=== PATIENT | female | born 1995 | race African-American/Black ===

== ENCOUNTER 2019-03-10 21:27 | Emergency (ER) | payer OTHER, SELFPAY ==
[2019-03-10 21:43] VITALS: BP 137/97; PULSE 125; RESP 14; TEMP 36.9; O2SAT 98; BMI 45.4
--- NOTE | 2019-03-10 22:19 | ED_ITS ---
HPI - Skin/Abscess/Foreign Bdy General Chief complaint: Skin/Abscess/Foreign Body Stated complaint: states cyst under left arm, stomach aches Time Seen by Provider: 03/10/19 21:53 Source: patient Mode of arrival: Ambulatory Limitations: no limitations History of Present Illness HPI narrative: 23-year-old female here for evaluation of abdominal pain and also potential abscess under her left arm. She does have hidradenitis. Has had abscesses drained in the past. She has noticed the redness and swelling under left armpit over the past day or so. No fevers. She also describes abdominal pain. States it is sharp. States has been going on for the past several days. No other associated symptoms. Has not tried anything for symptoms prior to arrival Related Data Previous Rx's Medication Instructions Recorded sulfamethoxazole-trimethoprim 1 tab PO BID 5 Days #10 tab 03/10/19 [Bactrim DS] Allergies Allergy/AdvReac Type Severity Reaction Status Date / Time No Known Drug Allergies Allergy Verified 03/10/19 21:53 Review of Systems Constitutional Constitutional: Denies fever(s) Cardiovascular Cardiovascular: Denies chest pain and Denies dyspnea Respiratory Respiratory: Denies dyspnea Gastrointestinal Gastrointestinal: Reports abdominal pain, Denies nausea and Denies vomiting Integumentary/Breasts Comments: Swelling an abscess under her left arm Neurologic Neurologic: Denies behavioral changes Psychiatric Psychiatric: Denies behavioral changes Hematologic/Lymphatic Hematologic/Lymphatic: Denies easy bleeding and Denies easy bruising [facility] Medical History Hidradenitis suppurativa (Acute) Social History Smoking Status: Never smoker Social History Smoking Status: Never smoker Exam Initial Vital Signs Initial Vital Signs: Vital Signs Temperature 98.5 F 03/10/19 21:43 Pulse Rate 125 H 03/10/19 21:43 Respiratory Rate 14 03/10/19 21:43 Blood Pressure 137/97 H 03/10/19 21:43 Pulse Oximetry 98 03/10/19 21:43 Const General: cooperative, comfortable and well developed Orientation: alert and awake HENCA Head: normal to inspection and normocephalic Resp Effort & Inspection: normal respiratory effort Auscultation: clear to auscultation bilaterally Cardio Rate: tachycardic Rhythm: regular rhythm Pulses: radial pulses present GI Inspection: non-distended Palpation: soft, No firm and No tender Back/Spine/Pelvis Back: No CVA tenderness Skin Other: Patient with a 6 cm area of induration with an overlying 1 cm pustule on her axilla. Neuro General: alert, awake and oriented x3 Cognition: normal cognition Speech: speech normal Extrem General: normal to inspection and capillary refill normal Psych Appearance: grossly normal and well kempt Procedures Abscess I/D Site: other (Axilla) Side (if applicable): left Local Anesthetic: lidocaine 1% Amount of anesthesia used (mL): 4 Technique: incised with #11 blade Irrigation: No Packing used?: none Complications: pain Course Orders Ordered: ED Orders 03/10/19 20:45 Comprehensive Metabolic Panel Stat Lipase Stat Test Serum,Qual Stat Discontinued Medications Lidocaine HCl (Xylocaine 1% (Pf)) 4 ml INJ NOW ONE Stop: 03/10/19 22:33 Last Admin: 03/10/19 23:30 Dose: 4 ml Documented by: SUZAN Vital Signs Vital signs: Vital Signs - 8 hr 03/10/19 21:43 03/10/19 23:58 Temperature 98.5 F Pulse Rate 125 H 108 H Respiratory Rate 14 18 Blood Pressure 137/97 H Blood Pressure [Right Arm] 129/72 Pulse Oximetry 98 99 MDM - Skin/Abscess/Foreign Bdy Lab Data Attestation: I reviewed the patient's lab results. Result diagrams: 03/10/19 Unknown 03/10/19 20:45 Labs: Lab Results 03/10/19 03/10/19 03/10/19 Range/Units 20:45 20:45 Unknown WBC Cancelled RBC Cancelled Hgb Cancelled Hct Cancelled MCV Cancelled MCH Cancelled MCHC Cancelled RDW Cancelled Plt Count Cancelled Neut % (Auto) Cancelled Lymph % (Auto) Cancelled [place]ff[place] % (Auto) Cancelled Eos % (Auto) Cancelled Baso % (Auto) Cancelled Neut # (Auto) Cancelled Lymph # (Auto) Cancelled [place]ff[place] # (Auto) Cancelled Eos # (Auto) Cancelled Baso # (Auto) Cancelled Sodium 129 L (137-145) mmol/L Potassium 4.6 (3.4-5.1) mmol/L Chloride 90 L (98-107) mmol/L Carbon Dioxide 22 (22-32) mmol/L BUN 9 (7-17) mg/dL Creatinine 0.70 (0.52-1.04) mg/dL Estimated GFR > 60.0 (>60) mL/min BUN/Creatinine Ratio 12.9 (6-22) Glucose 767 H* (70-100) mg/dL Calcium 9.7 (8.4-10.2) mg/dL Total Bilirubin 0.8 (0.2-1.3) mg/dL AST 19 (14-36) IU/L ALT 7 L (9-52) IU/L Alkaline Phosphatase 137 H (38-126) U/L Total Protein 8.6 H (6.3-8.2) g/dL Albumin 4.5 (3.5-5.0) g/dL Globulin 4.1 (1.7-4.1) g/dL Albumin/Globulin Ratio 1.1 (1.0-2.8) Lipase 61 (23-300) U/L Serum , Qual Negative (Negative) Urine Dip Bedside Urine Glucose 1000 mg/dl Bedside Urine Bilirubin - Negative Urine Specific Sterling 1.010 Bedside Urine Occult Blood - Negative Bedside Urine pH 5.5 Bedside Urine Protein - Negative Bedside Urine Urobilinogen - Negative Bedside Urine Nitrite - Negative Bedside Urine Leukocytes - Negative Esterase MDM Narrative Medical decision making narrative: Patient has a benign abdominal exam. test was negative. The abscess in her left axilla was I and D this described above. Patient tolerated this well. Will send home on antibiotics given the surrounding erythema. Patient also is hyperglycemic. She has a normal CO2 on her BMP. Low suspicion for DKA. Upon further questioning the patient states she has been diagnosed with diabetes in the past. She states that she was on insulin at 1 point. She was taken off the insulin by her primary provider. She states that while she is at school her blood sugars normally run in the 300-500 range. She states that she was not on insulin at the time. Since she has been home from school her blood sugars have been in the 200 range. She did show me some lab work when several weeks ago she had an A1c that was 6.6. I am not 100% sure but I think this is the reason why her primary doctor took her off the insulin. She was informed of her hyperglycemia today. Informed her that she should be taking her blood sugars at home. Informed her that on Tuesday she needed to talk with her primary doctor regarding her elevated blood sugar in to discuss whether not she needs to start insulin. She expressed understanding and agreement. Discharge Plan Departure Patient Disposition: Home Clinical Impression: Hyperglycemia Abscess of skin or subcutaneous tissue Qualifiers: Site of cutaneous abscess: unspecified site Qualified Code(s): L02.91 - Cutaneous abscess, unspecified Abdominal pain Qualifiers: Abdominal location: unspecified location Qualified Code(s): R10.9 - Unspecified abdominal pain Discharge Date/Time: 03/10/19 23:56 Instructions: DI for Incision and Drainage of a Skin Abscess, DI for Hyperglycemia -- Adult Activity Restrictions/Additional Instructions: Expect some oozing from the drainage site. Keep covered with the bandages you were provided. Start taking the antibiotics as directed. I recommend that on Tuesday you contact your primary provider about your elevated blood glucose level. I do recommend that you discuss the possibility of starting on insulin once again. If her abdominal pain changes or worsens please return to the emergency department. You can take Tylenol and/or ibuprofen for any discomfort. Prescriptions: New sulfamethoxazole-trimethoprim [Bactrim DS] 800-160 mg tablet 1 tab PO BID 5 Days Qty: 10 RF: 0 Stand Alone Forms: Work Release Note
[2019-03-10 23:08] LABS: Alanine Aminotransferase 7 IU/L (9-52); Albumin 4.5 g/dL (3.5-5.0); Albumin Globulin Ratio 1.1 (1.0-2.8); Alkaline Phosphatase 137 U/L (38-126); Aspartate Aminotransferase 19 IU/L (14-36); BUN Creatinine Ratio 12.9 (6-22); Bilirubin Total 0.8 mg/dL (0.2-1.3); Blood Urea Nitrogen 9 mg/dL (7-17); Calcium 9.7 mg/dL (8.4-10.2); Carbon Dioxide 22 mmol/L (22-32); Chloride 90 mmol/L (98-107); Estimated Glomerular Filt Rate > 60.0 mL/min (>60); Globulin 4.1 g/dL (1.7-4.1); HEMOLYSIS < 15 (0-50); Lipase 61 U/L (23-300); Potassium 4.6 mmol/L (3.4-5.1); Sodium 129 mmol/L (137-145); Total Protein 8.6 g/dL (6.3-8.2)
[2019-03-10 23:12] LABS: Pregnancy Test Serum,Qual Negative (Negative)
[2019-03-10 23:18] LABS: Glucose 767 mg/dL (70-100)
[2019-03-10] MEDS: LIDOCAINE 1% (PF) 4 ML INJ (23:30)
[2019-03-10 23:58] VITALS: BP 129/72; PULSE 108; RESP 18; O2SAT 99
== END 2019-03-10 23:56 | disposition home or self-care (01) ==
PROVIDERS: Emergency Provider Emergency Medicine
DX: R73.9 Hyperglycemia, unspecified (principal); L02.91 Cutaneous abscess, unspecified; R10.9 Unspecified abdominal pain
CPT/HCPCS: 10060; 36415; 80053; 81003; 83690; 84703; 85025; 99283

== ENCOUNTER 2019-10-29 09:01 | Emergency (ER) | payer OTHER, SELFPAY ==
[2019-10-29 09:05] VITALS: BP 134/77; PULSE 101; RESP 18; TEMP 36.6; O2SAT 98
--- NOTE | 2019-10-29 09:19 | DI.US.S_ITS ---
PROCEDURE: US OB <= 14 WEEKS FETUS INDICATIONS: BLEEDING, CRAMPING OUTSIDE/PRIOR DATING DATA: Last menstrual period (LMP): LMP-based estimated date of delivery (AMBROSIO): 06/03/20. First dating scan (date and location): 10/29/19. Estimated date of delivery (AMBROSIO) from first dating scan: 06/21/20. TECHNIQUE: Real-time scanning was performed of the fetus and maternal pelvic organs, with image documentation. Endovaginal scanning was also performed to better visualize the fetus and maternal ovaries. COMPARISON: None. FINDINGS: Embryo: Single intrauterine with crown-rump length measuring 0.6 cm correspond to 6 weeks 2 days. heart rate measures 107 beats per minute. Measurement variability in dating: +/- 4 weeks by LMP, +/- 7 days by mean sac diameter (use before 6 weeks gestation if crown-rump length not able to be measured), +/- 5 days by crown-rump length (up to 8 weeks 6 days gestation), +/- 7 days by crown-rump length (up to 13 weeks 6 days gestation). Maternal organs: Ovaries not visualized.. Limited images through the kidneys demonstrate no hydronephrosis. IMPRESSION: 1. Single live intrauterine as above. No visualized cause of bleeding. 2. Recommend followup imaging at 20-22 weeks for dates and anatomy. Dictated by: Antionette Miguel M.D. on 10/29/2019 at 11:18 Approved by: Antionette Miguel M.D. on 10/29/2019 at 11:20
--- NOTE | 2019-10-29 09:46 | ED_ITS ---
HPI - Female Genitourinary General Chief complaint: Vaginal Bleeding Stated complaint: Think shes having a Miscarriage Time Seen by Provider: 10/29/19 09:21 Source: patient and family Mode of arrival: Ambulatory Limitations: no limitations History of Present Illness HPI Narrative: CC: Vaginal bleeding HPI: The patient is a 24-year-old female who presented to the emergency department with vaginal bleeding. She stated that she got up in the middle of the night at approximately 3:00 a.m. in the morning and went to the bathroom and when she wiped it was pink. She noticed some red dots in blood in the toilet. There was no tissue. This morning she has had some pinkish brown vaginal discharge. She states that her last menstrual period was August 27. She has taken 4 home tests that have been positive. The patient states that she was seen by her primary care physician who did not confirm or do a test. She states that this is her 1st she has never had an or delivery. She denies having any bleeding abnormalities or being on any anticoagulants or any other medications. She is on medications for her diabetes. She denies any fall or injury. She states that she is 5 ft foot 4 in tall and weighs 242 lb. She admits to history of diabetes mellitus but denies hypertension heart murmur or asthma. She states that she is a former smoker and has recently stopped. She drinks alcohol socially in periodically smokes marijuana. She has not been exposed to co vapor the coronavirus. Related Data Allergies Allergy/AdvReac Type Severity Reaction Status Date / Time No Known Drug Allergies Allergy Verified 03/10/19 21:53 Review of Systems Review of Systems Narrative: REVIEW OF SYSTEMS: CONSTITUTIONAL: The patient denies any fever chills but states that she was sweating yesterday when the weather was so hot. NEUROLOGICAL: She has a mild headache but denies any numbness tingling paresthesias in his seizures paresis or paralysis. EENT: She denies any loss of vision double vision sinus congestion nasal drainage or sore throat. CARDIO-PULMONARY: She denies any chest pain cough shortness of breath difficulty in breathing palpitations dizziness ENDOCRINE: The patient states that she is a diabetic GASTROINTESTINAL: She denies any abdominal pain nausea vomiting but has had intermittent diarrhea without melena or hematochezia. GENITAL URINARY: She denies any dysuria urinary frequency or urgency or other symptomatology P MUSCULOSKELETAL/ RHEUMATOLOGICAL: She denies any low back pain. DERMATOLOGICAL: She denies any bruising or skin rash. Patient History Medical History Hidradenitis suppurativa (Acute) alcohol intake frequency: a few times a week Substance Use Type: marijuana Exam Narrative Exam Narrative: PHYSICAL EXAM: CONSTITUTIONAL: Awake, Alert, Oriented, Coherent, Cooperative in NAD. Does not appear toxic or ill. Obese. HEAD: AT/NC EENT: PERRL, FROM of eyes, no discharge, no nystagmus MOUTH: The patient is wearing a mask NECK: Supple, no obvious JVD, Trachea is midline without stridor, no palpable LN. SPINE: Palpationof the cervical, Thoracic, Lumbar or Sacral spine reveals no gross deformity or tenderness. No CVA tenderness. THORAX: No deformity, retractions, chest wall tenderness. LUNGS: Clear, symmetrical breath sounds without respiratory distress. HEART: Normal heart tones, regular rhythm and rate without murmur. ABDOMEN: Soft, non-tender, normal bowel sounds without guarding, rebound, rigidity or palpable mass. EXTREMITIES: No edema, deformity, tenderness or cyanosis. SKIN: No rash, bruising, petechiae or purpura. NEURO: Awake, alert, oriented, conversive, cranial nerves II-XII are symmetrical , moves all 4 extremities and is ambulatory. Initial Vital Signs Initial Vital Signs: Vital Signs Temperature 97.8 F 10/29/19 09:05 Pulse Rate 101 H 10/29/19 09:05 Respiratory Rate 18 10/29/19 09:05 Blood Pressure 134/77 10/29/19 09:05 Pulse Oximetry 98 10/29/19 09:05 Course Course Course Narrative: 0953: The patient was informed that approximately 20% of women have some degree of vaginal bleeding during the 1st trimester of . She was also informed that the majority, 75-50% go on to have a normal and delivery. 25-50% can end up with an miscarriage during her 1st trimester. A miscarriage during her 1st trimester is like having a very heavy menstrual period. 1054: Ultrasound per the [employer] sound tech. Reveals and single live intrauterine without any other abnormality noted. The heart rate was 107 and the age is 6 weeks 2 days. The patient will be discharged with the diagnosis of vaginal bleeding 1st trimester single live intrauterine . If she develops worsening bleeding she needs to return to the emergency department. She is to follow-up with her public health representative and or primary care physician. Her quantitative beta hCG remains pending. Orders Ordered: Discontinued Medications Acetaminophen (Tylenol) 975 mg PO NOW ONE Stop: 10/29/19 10:59 Last Admin: 10/29/19 11:16 Dose: Not Given Documented by: APRIL Insulin Human Regular (Humulin R) 5 unit IV NOW ONE Stop: 10/29/19 11:01 Last Admin: 10/29/19 11:16 Dose: Not Given Documented by: APRIL Vital Signs Vital signs: Vital Signs - 8 hr 10/29/19 09:05 Temperature 97.8 F Pulse Rate 101 H Respiratory Rate 18 Blood Pressure 134/77 Pulse Oximetry 98 MDM - Female Genitourinary Lab Data Result diagrams: 10/29/19 10:20 10/29/19 10:20 Labs: Lab Results 10/29/19 10/29/19 10/29/19 Range/Units 09:50 10:20 10:20 WBC 7.7 (4.5-11.0) X10^3/uL RBC 4.63 (4.0-5.2) X10^6/uL Hgb 12.8 (12.0-16.0) g/dL Hct 39.3 (36-46) % MCV 84.9 (80-100) fL MCH 27.6 (26-34) PG MCHC 32.5 (30-36) % RDW 13.9 (11.6-14.8) % Plt Count 205 (150-400) X10^3/uL Neut % (Auto) 74.0 (50-75) % Lymph % (Auto) 18.4 L (25-40) % Bailey % (Auto) 6.2 (3-14) % Eos % (Auto) 1.0 L (2-4) % Baso % (Auto) 0.4 (0-2) % Neut # (Auto) 5700 (7557-7015) /uL Lymph # (Auto) 1400 (7665-9801) /uL Bailey # (Auto) 500 (0-900) /uL Eos # (Auto) 100 (0-450) /uL Baso # (Auto) 0 (0-100) /uL Sodium 134 L (137-145) mmol/L Potassium 4.1 (3.4-5.1) mmol/L Chloride 100 (98-107) mmol/L Carbon Dioxide 23 (22-32) mmol/L BUN 9 (7-17) mg/dL Creatinine 0.36 L (0.52-1.04) mg/dL Estimated GFR > 60.0 (>60) mL/min BUN/Creatinine Ratio 25.0 H (6-22) Glucose 347 H (70-100) mg/dL Calcium 9.7 (8.4-10.2) mg/dL Total Bilirubin 0.5 (0.2-1.3) mg/dL AST 58 H (14-36) IU/L ALT 25 (<35) IU/L Alkaline Phosphatase 66 (38-126) U/L Total Protein 7.9 (6.3-8.2) g/dL Albumin 4.2 (3.5-5.0) g/dL Globulin 3.7 (1.7-4.1) g/dL Albumin/Globulin Ratio 1.1 (1.0-2.8) HCG, Quant 8310.5 mIU/mL Urine RBC 1-5/hpf (0-5/HPF) Urine WBC 0-1/hpf (0-5/HPF) Ur Squamous Epith Cells 1-5 /hpf (0-5/HPF) Urine Bacteria Occasional (0-1) (None) Ur Culture Indicated? Cult not indicated Blood Type 10/29/19 Range/Units 10:20 WBC (4.5-11.0) X10^3/uL RBC (4.0-5.2) X10^6/uL Hgb (12.0-16.0) g/dL Hct (36-46) % MCV (80-100) fL MCH (26-34) PG MCHC (30-36) % RDW (11.6-14.8) % Plt Count (150-400) X10^3/uL Neut % (Auto) (50-75) % Lymph % (Auto) (25-40) % Bailey % (Auto) (3-14) % Eos % (Auto) (2-4) % Baso % (Auto) (0-2) % Neut # (Auto) (9945-8795) /uL Lymph # (Auto) (7909-3764) /uL Bailey # (Auto) (0-900) /uL Eos # (Auto) (0-450) /uL Baso # (Auto) (0-100) /uL Sodium (137-145) mmol/L Potassium (3.4-5.1) mmol/L Chloride (98-107) mmol/L Carbon Dioxide (22-32) mmol/L BUN (7-17) mg/dL Creatinine (0.52-1.04) mg/dL Estimated GFR (>60) mL/min BUN/Creatinine Ratio (6-22) Glucose (70-100) mg/dL Calcium (8.4-10.2) mg/dL Total Bilirubin (0.2-1.3) mg/dL AST (14-36) IU/L ALT (<35) IU/L Alkaline Phosphatase (38-126) U/L Total Protein (6.3-8.2) g/dL Albumin (3.5-5.0) g/dL Globulin (1.7-4.1) g/dL Albumin/Globulin Ratio (1.0-2.8) HCG, Quant mIU/mL Urine RBC (0-5/HPF) Urine WBC (0-5/HPF) Ur Squamous Epith Cells (0-5/HPF) Urine Bacteria (None) Ur Culture Indicated? Blood Type A Positive Point of Care Testing Glucose POC 324 Urine Dip Bedside Urine Glucose 1000 mg/dl Bedside Urine Bilirubin - Negative Bedside Urine Ketone +++ 80 Urine Specific [place] 1.025 Bedside Urine Occult Blood ++ Bedside Urine pH 6.0 Bedside Urine Protein - Negative Bedside Urine Urobilinogen - Negative Bedside Urine Nitrite - Negative Bedside Urine Leukocytes - Negative Esterase Discharge Plan Departure Patient Disposition: Home Clinical Impression: Vaginal bleeding, Threatened , First trimester Discharge Date/Time: 10/29/19 11:18 Instructions: DI for Threatened , DI for Vaginal Bleeding During Activity Restrictions/Additional Instructions: 1. It is imperative that you follow-up with your primary care physician for your diabetes mellitus and . Without control of your blood sugar you are mo re likely to miscarry. 2. You need to follow-up with your public health representative. 3. You need to follow-up with your primary care physician. 5. You need to take your insulin on a regular basis. Referrals: Cullen Murillo MD [Primary Care Provider] -
[2019-10-29 10:31] LABS: Add Manual Diff / Slide Review NO; Basophils Absolute Auto 0 /uL (0-100); Basophils Percent Auto 0.4 % (0-2); Eosinophils Absolute Auto 100 /uL (0-450); Hematocrit 39.3 % (36-46); Hemoglobin 12.8 g/dL (12.0-16.0); Lymphocytes Absolute Auto 1400 /uL (1100-4500); Lymphocytes Percent Auto 18.4 % (25-40); Mean Corpuscular HGB Conc 32.5 % (30-36); Mean Corpuscular Hemoglobin 27.6 PG (26-34); Mean Corpuscular Volume 84.9 fL (80-100); Monocytes Absolute Auto 500 /uL (0-900); Monocytes Percent Auto 6.2 % (3-14); Neutrophils Absolute Auto 5700 /uL (1500-7000); Platelet Count 205 X10^3/uL (150-400); Red Blood Cell Count 4.63 X10^6/uL (4.0-5.2); Red Cell Distribution Width 13.9 % (11.6-14.8); White Blood Cell Count 7.7 X10^3/uL (4.5-11.0)
[2019-10-29 10:45] LABS: Alanine Aminotransferase 25 IU/L (<35); Albumin 4.2 g/dL (3.5-5.0); Albumin Globulin Ratio 1.1 (1.0-2.8); Alkaline Phosphatase 66 U/L (38-126); Aspartate Aminotransferase 58 IU/L (14-36); Bilirubin Total 0.5 mg/dL (0.2-1.3); Blood Urea Nitrogen 9 mg/dL (7-17); Calcium 9.7 mg/dL (8.4-10.2); Carbon Dioxide 23 mmol/L (22-32); Chloride 100 mmol/L (98-107); Estimated Glomerular Filt Rate > 60.0 mL/min (>60); Globulin 3.7 g/dL (1.7-4.1); Glucose 347 mg/dL (70-100); HEMOLYSIS < 15 (0-50); Potassium 4.1 mmol/L (3.4-5.1); Sodium 134 mmol/L (137-145); Total Protein 7.9 g/dL (6.3-8.2)
[2019-10-29 11:02] LABS: HCG Quantitative /Beta subunit 8310.5 mIU/mL
[2019-10-29 11:07] VITALS: BP 131/71; PULSE 97; RESP 16; O2SAT 100
[2019-10-29 12:25] LABS: Bacteria Urine Occasional (0-1); Culture Indicated Urine Cult Not Indicated; RBC Urine 1-5/HPF (0-5/HPF); Squamous Epithelial Cell Urine 1-5 /HPF (0-5/HPF); WBC Urine 0-1/HPF (0-5/HPF)
== END 2019-10-29 11:18 | disposition home or self-care (01) ==
PROVIDERS: Emergency Provider Emergency Medicine; PCP Internal Medicine
DX: O20.0 Threatened abortion (principal); E66.9 Obesity, unspecified
CPT/HCPCS: 36415; 76801; 76817; 80053; 81003; 81015; 82962; 84702; 85025; 86900; 86901; 99283; 99284

== ENCOUNTER → 2022-01-14 10:13 | Outpatient (CLI) | payer OTHER, SELFPAY | PROVIDERS: PCP Internal Medicine; Visit Provider Physician Assistant | DX: N34.3 Urethral syndrome, unspecified (principal) | CPT/HCPCS: 87077; 87086; 87186 ==